=== PATIENT | female | born 1985 | race Caucasian/White ===

== ENCOUNTER 2024-08-13 00:52 | Inpatient (IN) | payer OTHER ==
[~2024-08-13] VITALS: Ht 165.1 cm; Wt 66.7 kg
[2024-08-13] VITALS (8 sets, daily range): BP systolic 125–142; BP diastolic 69–902
[~2024-08-13 00:52] MED LIST: PRENATAL + DHA1 EAC1 PO
[2024-08-13] MEDS ORDERED: RINGERS SOLUTION,LACTATED 1,000 ML IV SCH (01:30)
[2024-08-13] MEDS ORDERED: MORPHINE SULFATE 4 MG/ML VIAL IV PRN (01:30)
[2024-08-13 03:10] LABS: HEMATOCRIT 36.1 % (36.0-45.00); HEMOGLOBIN 12.7 g/dL (12.0-15.00); MEAN CELL VOLUME 86.8 fL (80.00-100.00); MEAN CORPUSCULAR HEMOGLOBIN 30.6 pg (27.00-32.0); MEAN CORPUSCULAR HGB CONC 35.2 g/dl (32.0-36.0); PLATELET COUNT 137 K/uL (150-450); RED BLOOD COUNT 4.16 M/uL (4.00-6.00); RED CELL DISTRIBUTION WIDTH 13.8 % (11.5-14.5)
[2024-08-13 03:35] LABS: PARTIAL THROMBOPLASTIN TIME 25.6 SECONDS (22.0-34.0); PROTHROMBIN TIME 10.9 SECONDS (9.0-11.5)
[2024-08-13 03:43] LABS: ALBUMIN 2.7 gm/dL (3.4-5.0); BILIRUBIN TOTAL 0.26 mg/dL (0.3-1.2); CALCIUM 8.6 mg/dL (8.5-10.1); CREATININE SERUM 0.54 mg/dL (0.55-1.02); GFR 126.35; GLOBULINA 2.9 G/DL (2.4-3.5); POTASSIUM 3.96 mEq/L (3.5-5.1); TOTAL PROTEIN 5.6 gm/dL (6.4-8.2)
[2024-08-13] MEDS ORDERED: OXYTOCIN 1,000 ML IV ONE (07:30)
[2024-08-13] MEDS ORDERED: CHLORHEXIDINE GLUCONATE 120 ML BOTTLE TP SCH (07:30)
[2024-08-13] MEDS ORDERED: IBUprofen 400 MG TABLET PO PRN (07:30)
[2024-08-13] MEDS ORDERED: LIDOCAINE HCL 1% 10ML VIAL IJ ONE (08:00)
[2024-08-13] MEDS ORDERED: ERYTHROMYCIN BASE OPHT 1GM EACH TUBE OP ONE (08:00)
[2024-08-13] MEDS ORDERED: DOCUSATE CALCIUM 240 MG CAPSULE PO SCH (21:00)
[2024-08-14] VITALS: BP 139/78
[2024-08-14 04:00] VITALS: BP 114/77
[2024-08-14 07:12] LABS: HEMATOCRIT 35.9 % (36.0-45.00); HEMOGLOBIN 12.3 g/dL (12.0-15.00); MEAN CELL VOLUME 88.4 fL (80.00-100.00); MEAN CORPUSCULAR HEMOGLOBIN 30.2 pg (27.00-32.0); MEAN CORPUSCULAR HGB CONC 34.1 g/dl (32.0-36.0); RED BLOOD COUNT 4.06 M/uL (4.00-6.00); RED CELL DISTRIBUTION WIDTH 13.8 % (11.5-14.5)
[2024-08-14 07:14] LABS: PLATELET COUNT 124 K/uL (150-450)
[2024-08-14 08:33] VITALS: BP 118/82
[2024-08-14 13:13] VITALS: BP 133/84
[2024-08-14 21:16] VITALS: BP 128/85
[2024-08-15 01:07] VITALS: BP 134/84
[2024-08-15 08:00] VITALS: BP 123/84
== END 2024-08-15 13:07 | disposition home or self-care (01) | DRG 807 ==
LOC: LDR 00:52 → OB/GYN 00:52 → LDR 08-20 11:00
PROVIDERS: Obstetrics & Gynecology Gynecology; ADMIT Obstetrics & Gynecology Maternal & Fetal Medicine; ATTEND Obstetrics & Gynecology Maternal & Fetal Medicine
PROC: 10E0XZZ Delivery of Products of Conception, External Approach (ICD-10-PCS; principal; 2024-08-13)
PROC: 0KQM0ZZ Repair Perineum Muscle, Open Approach (ICD-10-PCS; 2024-08-13)
PROC: 4A1HXCZ Monitoring of Products of Conception, Cardiac Rate, External Approach (ICD-10-PCS; 2024-08-13)
DX: O70.1 Second degree perineal laceration during delivery (principal); Z37.0 Single live birth; Z3A.39 39 weeks gestation of pregnancy; Z20.822 Contact with and (suspected) exposure to COVID-19